=== PATIENT | female | born 1950 | race Caucasian/White ===

== ENCOUNTER 2017-05-16 13:06 | Emergency (ER) | payer OTHER ==
[2017-05-16 13:26] VITALS: BP 137/81
== END 2017-05-16 15:05 | disposition home or self-care (01) ==
LOC: ED 13:06
DX: H10.211 Acute toxic conjunctivitis, right eye (principal); T49.0X5A Adverse effect of local antifungal, anti-infective and anti-inflammatory drugs, initial encounter; Y92.89 Other specified places as the place of occurrence of the external cause

== ENCOUNTER 2017-10-04 08:58 | Emergency (ER) | payer OTHER ==
[2017-10-04 10:23] VITALS: BP 121/71
== END 2017-10-04 10:55 | disposition home or self-care (01) ==
LOC: ED 08:58
DX: S82.892A Other fracture of left lower leg, initial encounter for closed fracture (principal); X50.1XXA Overexertion from prolonged static or awkward postures, initial encounter; Y93.89 Activity, other specified; Y92.89 Other specified places as the place of occurrence of the external cause; Y99.8 Other external cause status

== ENCOUNTER → 2018-04-14 | Day surgery (SDC) | payer OTHER ==
[~2018-04-14] VITALS: Ht 165.1 cm; Wt 93.0 kg
[2018-04-14 11:22] VITALS: BP 142/73
[2018-04-14 18:02] VITALS: BP 154/90
== END | disposition home or self-care (01) ==
LOC: EDSTATUS 04-11 09:00 → DS 04-11 09:00 → OR 04-11 09:00 → DS 09:00
PROVIDERS: Neuromusculoskeletal Medicine, Sports Medicine
PROC: 0SBC4ZZ Excision of Right Knee Joint, Percutaneous Endoscopic Approach (ICD-10-PCS; principal; 2018-04-14 12:00)
DX: S83.251A Bucket-handle tear of lateral meniscus, current injury, right knee, initial encounter (principal); S83.271A Complex tear of lateral meniscus, current injury, right knee, initial encounter; M32.9 Systemic lupus erythematosus, unspecified; M79.7 Fibromyalgia; M51.26 Other intervertebral disc displacement, lumbar region; E03.9 Hypothyroidism, unspecified; X58.XXXA Exposure to other specified factors, initial encounter; Y92.9 Unspecified place or not applicable
CPT/HCPCS: J0690; J1170; J2001; J2175; J2250; J2405; J2704; J3010; J3490; J7030; J7120

== ENCOUNTER 2018-08-04 06:17 | Inpatient (IN) | payer OTHER ==
[~2018-08-04] VITALS: Ht 165.1 cm; Wt 90.9 kg
[2018-08-04 06:27] VITALS: BP 132/76
[2018-08-04 07:19] VITALS: BP 132/76
[2018-08-04 19:35] VITALS: BP 82/62
[2018-08-05 03:16] VITALS: BP 93/50
[2018-08-05 05:58] LABS: CALCIUM 7.4 mg/dL (8.5-10.1); CARBON DIOXIDE 30.9 mmol/L (21-32); CREATININE SERUM 1.2 mg/dL (0.6-1.0); MAGNESIUM 1.7 mg/dL (1.8-2.4); POTASSIUM SERUM 3.9 mmol/L (3.5-5.1)
[2018-08-05 08:00] VITALS: BP 87/36
[2018-08-05 12:00] VITALS: BP 97/33
[2018-08-05 16:00] VITALS: BP 115/38
[2018-08-06 05:46] LABS: CALCIUM 7.5 mg/dL (8.5-10.1); CARBON DIOXIDE 31.7 mmol/L (21-32); CHLORIDE SERUM 107 mmol/L (98-107); CREATININE SERUM 0.9 mg/dL (0.6-1.0); GFR1 > 60 mL/min; GLUCOSE SERUM 125 mg/dL (74-106); POTASSIUM SERUM 3.2 mmol/L (3.5-5.1); SODIUM SERUM 140 mmol/L (136-145)
[2018-08-06 05:54] LABS: BASOPHIL % 0.2 % (0-2); RED CELL DISTRIBUTION WIDTH 14.3 % (11.5-14.5)
[2018-08-06 05:55] LABS: PLATELET COUNT 97 x10^3mcL (130-400)
[2018-08-06 08:00] VITALS: BP 95/71
[2018-08-06 09:13] VITALS: Ht 165.1 cm; Wt 90.9 kg
[2018-08-06 12:30] VITALS: BP 135/68
[2018-08-06 21:09] VITALS: BP 112/53
[2018-08-07 05:32] VITALS: BP 159/72
[2018-08-07 07:22] LABS: CALCIUM 7.8 mg/dL (8.5-10.1); CHLORIDE SERUM 106 mmol/L (98-107); CREATININE SERUM 0.7 mg/dL (0.6-1.0); GFR1 > 60 mL/min; GLUCOSE SERUM 94 mg/dL (74-106); POTASSIUM SERUM 3.5 mmol/L (3.5-5.1); SODIUM SERUM 142 mmol/L (136-145)
[2018-08-07 07:48] LABS: BASOPHIL % 0.4 % (0-2); PLATELET COUNT 107 x10^3mcL (130-400); RED CELL DISTRIBUTION WIDTH 14.5 % (11.5-14.5)
[2018-08-07 09:48] VITALS: BP 137/73
[2018-08-07 17:22] VITALS: BP 127/64
[2018-08-07 20:33] VITALS: BP 139/63
[2018-08-08 05:44] VITALS: BP 122/67
[2018-08-08 06:16] LABS: BASOPHIL % 0.3 % (0-2); PLATELET COUNT 138 x10^3mcL (130-400); RED CELL DISTRIBUTION WIDTH 14.5 % (11.5-14.5)
[2018-08-08] MEDS ORDERED: LOV40I SC (08:06)
[2018-08-08] MEDS ORDERED: LOP50 PO (08:07)
[2018-08-08] MEDS ORDERED: APAP/HYDROCODON1 T13 PO (08:08)
[2018-08-08] MEDS ORDERED: SYN25 PO (08:09)
[2018-08-08 08:43] VITALS: BP 122/75
[2018-08-08 11:58] VITALS: BP 122/75
[2018-08-08 12:04] VITALS: BP 136/65
== END 2018-08-08 14:50 | DRG 469 ==
LOC: IC 06:17 → DU 06:17 → MU 06:17 → IC 15:41 → DU 08-06 16:03
PROVIDERS: Internal Medicine Pulmonary Disease; Neuromusculoskeletal Medicine, Sports Medicine
PROC: 0SRC0J9 Replacement of Right Knee Joint with Synthetic Substitute, Cemented, Open Approach (ICD-10-PCS; principal; 2018-08-04 07:30)
PROC: 30233N1 Transfusion of Nonautologous Red Blood Cells into Peripheral Vein, Percutaneous Approach (ICD-10-PCS; 2018-08-05)
DX: M17.11 Unilateral primary osteoarthritis, right knee (principal); J96.01 Acute respiratory failure with hypoxia; J95.89 Other postprocedural complications and disorders of respiratory system, not elsewhere classified; J98.11 Atelectasis; M32.9 Systemic lupus erythematosus, unspecified; I95.81 Postprocedural hypotension; I10 Essential (primary) hypertension; D64.9 Anemia, unspecified; M79.7 Fibromyalgia; E03.9 Hypothyroidism, unspecified; G89.4 Chronic pain syndrome; Z85.520 Personal history of malignant carcinoid tumor of kidney; Y83.8 Other surgical procedures as the cause of abnormal reaction of the patient, or of later complication, without mention of misadventure at the time of the procedure
CPT/HCPCS: 82962; 90732; 94150; 97110-GP; 97116-GP; 97139; 97530-GP; C1713; C1776; J0690; J1170; J1650; J2175; J2250; J2405; J2704; J3010; J3480; J3490; J7030; J7050; J7120; P9016; Q0092